=== PATIENT | female | born 1995 | race Caucasian/White ===

== ENCOUNTER 2021-11-11 20:55 | Emergency (ER) | payer OTHER, SELFPAY ==
[2021-11-11 20:57] VITALS: BP 153/110; PULSE 133; RESP 20; TEMP 36.2; O2SAT 99
--- NOTE | 2021-11-11 21:32 | ED.ALLEREA ---
HPI - Allergic Reaction General Chief complaint: Allergic Reaction Stated complaint: Alergic rxn Time Seen by Provider: 11/11/21 21:13 History of Present Illness HPI narrative: 26-year-old female with history of allergic reaction presents the emerge department after being exposed to a banana at the grocery store. Patient states ambulatory she thought she was having shortness of breath patient did use her EpiPen. Patient states after using the EpiPen she did have improvement of her symptoms for a few minutes. Patient states since then she feels that she does have tightening of her throat. Patient denies any difficulty breathing. Patient denies any difficulty swallowing. Patient also did take an unknown dose of Benadryl at the time of the incident. Related Data Allergies Allergy/AdvReac Type Severity Reaction Status Date / Time banana Allergy Difficulty Verified 11/11/21 22:00 Swallowing eucalyptus Allergy Hives Verified 11/11/21 22:00 sulfamethoxazole Allergy Hives Verified 11/11/21 22:00 [From Bactrim] trimethoprim [From Bactrim] Allergy Hives Verified 11/11/21 22:00 Review of Systems Review of Systems: CONSTITUTIONAL: Denies fever, chills, or sweats. EYES: Denies visual changes, redness, or discharge. ENT: Denies rhinorrhea, congestion, sore throat, or otalgia. CARDIOVASCULAR: Denies chest pain, palpitations, or edema. RESPIRATORY: Denies cough or dyspnea. Does report throat pressure GASTROINTESTINAL: Denies abdominal pain, nausea, vomiting, or diarrhea. GENITOURINARY: Denies dysuria or hematuria. SKIN: Denies rash or itching. MUSCULOSKELETAL: Denies back pain, joint pain, or myalgia. NEUROLOGIC: Denies headache, numbness, or weakness. PSYCHIATRIC: Denies anxiety or depression. Exam Narrative: APPEARANCE: Well appearing, no pain in distress, well-nourished. EYES: PERRLA/EOMI, conjunctivae very clear. NOSE: Normal no drainage THROAT: Pharynx clear, no exudate. NECK: Supple. No adenopathy, no masses. No stridor RESPIRATORY: Airway patent, respirations nonlabored. Clear to auscultation bilaterally, no rales, rhonchi, wheezing. CARDIOVASCULAR: Tachycardia and rhythm without murmurs rubs or gallops. ABDOMINAL: Soft, nontender, nondistended, no hepatosplenomegally MUSCULOSKELETAl: Moves all extremities. Strength/ROM intact, No edema, No calf tenderness. NEURO: Alert. Cranial nerves II through XII intact. Good gait. Good coordination SKIN: Warm, dry. Normal Color PSYCHIATRIC: Normal affect/mood, normal interaction with parents. Course Course Emergency Course: Patient was treated with 40 mg of p.o. prednisone, IV famotidine and IV Benadryl. Patient and family reviewed and the plan to treat with rest of medications and to observe. Reevaluation(s) Reevaluation #1: On first reevaluation patient states she feels significantly improved and is requesting discharge to home. Plan for additional 4 days of steroids was discussed with both patient and family. Patient's EpiPen will be refilled. All questions and concerns were addressed. Both patient and family were comfortable with the plan for discharge and close follow-up Time: 22:24 Vital Signs Vital signs: Vital Signs Temperature 97.2 F L 11/11/21 20:57 Pulse Rate 133 H 11/11/21 20:57 Respiratory Rate 20 11/11/21 20:57 Blood Pressure 153/110 H 11/11/21 20:57 Pulse Oximetry 99 11/11/21 20:57 Temperature 97.2 F L 11/11/21 20:57 Pulse Rate 105 H 11/11/21 22:05 Respiratory Rate 21 H 11/11/21 22:05 Blood Pressure 139/85 11/11/21 22:05 Pulse Oximetry 99 11/11/21 22:05 MDM - Allergic Reaction MDM Narrative Medical decision making narrative: Patient was treated with her home EpiPen prior to arrival. Upon arrival to the emerge department patient was mildly tachycardic and did receive IV fluids. Patient was also treated with prednisone, famotidine and Benadryl Discharge Plan Discharge Clinical Impression: Allergic reaction Qualifiers
[2021-11-11 21:51] VITALS: PULSE 107; RESP 23; O2SAT 99
[2021-11-11] MEDS: diphenhydrAMINE HCl INJ 50 MG/ML VIAL 25 MG IV PUSH (22:00)
[2021-11-11] MEDS: SODIUM CHLORIDE 0.9% IV 1,000 ML 999 ML IV CONT (22:01)
[2021-11-11] MEDS: FAMOTIDINE 20 MG/2 ML VIAL IV PUSH (22:01)
[2021-11-11 22:05] VITALS: BP 139/85; PULSE 105; RESP 21; O2SAT 99
[2021-11-11] MEDS: predniSONE 20 MG TABLET 40 MG PO (22:05)
[2021-11-11 22:54] VITALS: BP 129/74; PULSE 94; RESP 15; O2SAT 99
[2021-11-11 23:18] VITALS: BP 125/78; PULSE 102; RESP 25; O2SAT 100
== END 2021-11-11 23:21 | disposition home or self-care (01) ==
PROVIDERS: Emergency Provider Emergency Medicine
DX: T78.40XA Allergy, unspecified, initial encounter (principal); Z91.018 Allergy to other foods
CPT/HCPCS: 96361; 96374; 96375; 99284; J1200; J7030; J7512

== ENCOUNTER 2022-01-28 10:45 | Emergency (ER) | payer OTHER, SELFPAY ==
[2022-01-28 10:50] VITALS: BP 111/93; PULSE 121; RESP 18; TEMP 37; O2SAT 100
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
[2022-01-28] MEDS: FAMOTIDINE 20 MG/2 ML VIAL IV PUSH (11:13)
[2022-01-28] MEDS: diphenhydrAMINE HCl INJ 50 MG/ML VIAL IV PUSH (11:13)
[2022-01-28] MEDS: methylPREDNISolone SOD SUCC 125 MG VIAL IV PUSH (11:13)
[2022-01-28 12:02] VITALS: PULSE 105; RESP 18; O2SAT 100
[2022-01-28 13:39] VITALS: BP 173/83; PULSE 105; RESP 17; O2SAT 97
== END 2022-01-28 13:36 | disposition home or self-care (01) ==
PROVIDERS: Emergency Provider General Practice
DX: T78.40XA Allergy, unspecified, initial encounter (principal); Z91.018 Allergy to other foods
CPT/HCPCS: 96374; 96375; 99284; J1200; J2930

== ENCOUNTER 2022-03-05 08:09 | Emergency (ER) | payer OTHER, SELFPAY ==
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
[2022-03-05 08:15] VITALS: BP 133/73; PULSE 92; RESP 18; TEMP 36.9; O2SAT 98
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
[2022-03-05 09:13] LABS: Basophils Absolute Auto 0.1 K/mm3 (0.0-0.1); Basophils Percent Auto 1.2 % (0.2-1.2); Eosinophils Absolute Auto 0.3 K/mm3 (0-0.3); Eosinophils Percent Auto 3.5 % (0-4.4); Hematocrit 38.1 % (37.0-47.0); Hemoglobin 12.2 g/dL (12.0-15.0); Immature Granulocyte Absolute 0.02 K/mm3 (0.00-0.031); Immature Granulocyte Percent A 0.2 % (0-0.5); Lymphocytes Absolute Auto 2.18 K/mm3 (0.9-3.2); Lymphocytes Percent Auto 25.7 % (18.3-44.2); Mean Corpuscular Hemoglobin 25.6 pg (26-34); Mean Corpuscular Volume 79.9 fl (80-100); Mean Platelet Volume 10.5 fl (7.4-10.4); Monocytes Absolute Auto 0.3 K/mm3 (0.1-0.6); Monocytes Percent Auto 3.8 % (2.6-8.5); Neutrophils Absolute Auto 5.6 K/mm3 (1.3-6.7); Neutrophils Percent Auto 65.6 % (45.5-73.1); Platelet Count Result 220 k/mm3 (150-375); Red Blood Count 4.77 M/mm3 (4.2-5.4); Red Cell Distribution Width 17.1 % (11.5-14.5); White Blood Count 8.5 K/mm3 (4.5-10.0)
[2022-03-05 09:24] LABS: Alanine Aminotransferase 15 U/L (4-35); Albumin Level 3.8 g/dL (3.5-5.1); Alkaline Phosphatase 53 U/L (38-126); Anion Gap 6 mmol/L (8-16); Aspartate Amino Transferase 24 U/L (14-36); Bilirubin,Total 0.4 mg/dL (0.2-1.3); Blood Urea Nitrogen 11 mg/dL (7-17); Calcium 8.7 mg/dL (8.4-10.2); Carbon Dioxide 24 mmol/L (22-30); Chloride 107 mmol/L (98-107); Estimated CRCL calculation 135 ml/min; Estimated Glomerular Filt Rate > 60; Glucose 120 mg/dL (65-110); Potassium 3.8 mmol/L (3.4-5.0); Sodium 137 mmol/L (137-145)
[2022-03-05] MEDS: MORPHINE SULFATE (*CRX) 4 MG/ML INJ IV PUSH ×2 (09:24→11:02)
[2022-03-05] MEDS: TETRACAINE HCL 0.5% OPHTH SOLN 4 ML BTL 1 DROP (09:24)
[2022-03-05] MEDS: FLUORESCEIN SOD 1 MG/STRIP EACH EYE (09:24)
--- NOTE | 2022-03-05 10:01 | PC.NURSE ---
Pt refusing transfer by ambulance to [facility]. Verbalized understanding of risks of driving by private vehicle. Mom will be driving her over. Ambulance refusal paper signed.
[2022-03-05 11:10] VITALS: BP 162/100; PULSE 120; RESP 18; O2SAT 100
[2022-03-05] MEDS: ONDANSETRON INJ 4 MG/2 ML VIAL IV PUSH (11:12)
--- NOTE | 2022-03-05 11:22 | PC.NURSE ---
Pt initially refused ambulance transfer but after increasing headache decided to transfer by ambulance to [place]. Pt also vomited x1. Obtained orders for morphine and zofran and given. [facility] called and updated.
--- NOTE | 2022-03-05 11:27 | PC.NURSE ---
Pts mom called and updated on pts transfer
== END 2022-03-05 11:26 | disposition short-term general hospital (02) ==
PROVIDERS: Emergency Provider Emergency Medicine
DX: S05.11XA Contusion of eyeball and orbital tissues, right eye, initial encounter (principal); V48.5XXA Car driver injured in noncollision transport accident in traffic accident, initial encounter
CPT/HCPCS: 36415; 70450; 70486; 72125; 80053; 85025; 96374; 96375; 96376; 99285; J2270; J2405

== ENCOUNTER 2022-06-17 11:59 | Emergency (ER) | payer OTHER, SELFPAY ==
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
[2022-06-17 12:00] VITALS: BP 154/100; PULSE 90; RESP 16; TEMP 36.3; O2SAT 98
--- NOTE | 2022-06-17 12:06 | ECG_ITS ---
Measurements Intervals [place] Rate: 64 P: -4 OR: 150 QRS: 21 QRSD: 87 T: 6 QT: 365 QTc: 378 Interpretive Statements SINUS RHYTHM BORDERLINE ST-T WAVE ABNORMALITY- INFERIOR LEADS BORDERLINE ECG Electronically Signed On 06-17-2022 16:58:55 CDT by Raymond Cochran D.O.
[2022-06-17 12:32] LABS: Basophils Absolute Auto 0.1 K/mm3 (0.0-0.1); Basophils Percent Auto 0.9 % (0.2-1.2); Eosinophils Absolute Auto 0.3 K/mm3 (0-0.3); Eosinophils Percent Auto 3.3 % (0-4.4); Hematocrit 43.2 % (37.0-47.0); Hemoglobin 13.8 g/dL (12.0-15.0); Immature Granulocyte Absolute 0.02 K/mm3 (0.00-0.031); Immature Granulocyte Percent A 0.2 % (0-0.5); Lymphocytes Absolute Auto 2.54 K/mm3 (0.9-3.2); Lymphocytes Percent Auto 27.3 % (18.3-44.2); Mean Corpuscular HGB Conc 31.9 g/dl (32-36); Mean Corpuscular Hemoglobin 26.4 pg (26-34); Mean Corpuscular Volume 82.8 fl (80-100); Mean Platelet Volume 9.9 fl (7.4-10.4); Monocytes Absolute Auto 0.4 K/mm3 (0.1-0.6); Monocytes Percent Auto 4.7 % (2.6-8.5); Neutrophils Absolute Auto 5.9 K/mm3 (1.3-6.7); Neutrophils Percent Auto 63.6 % (45.5-73.1); Platelet Count Result 265 k/mm3 (150-375); Red Blood Count 5.22 M/mm3 (4.2-5.4); Red Cell Distribution Width 14.6 % (11.5-14.5); White Blood Count 9.3 K/mm3 (4.5-10.0)
[2022-06-17 12:35] VITALS: BP 134/90; PULSE 81
[2022-06-17 12:36] VITALS: BP 148/106; BP 154/100; PULSE 79; PULSE 98
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
[2022-06-17 13:06] LABS: Alanine Aminotransferase 17 U/L (6-35); Albumin Level 4.4 g/dL (3.5-5.1); Alkaline Phosphatase 63 U/L (38-126); Anion Gap 9 mmol/L (8-16); Aspartate Amino Transferase 27 U/L (14-36); Bilirubin,Total 0.4 mg/dL (0.2-1.3); Blood Urea Nitrogen 8 mg/dL (7-17); Calcium 10.3 mg/dL (8.4-10.2); Carbon Dioxide 23 mmol/L (22-30); Chloride 107 mmol/L (98-107); Estimated CRCL calculation 121 ml/min; Estimated Glomerular Filt Rate > 60; Glucose 99 mg/dL (65-110); Potassium 4.2 mmol/L (3.4-5.0); Sodium 139 mmol/L (137-145)
[2022-06-17 13:38] LABS: Lactic Acid Reflex 0.9 mmol/L (0.7-2.0)
[2022-06-17 14:23] VITALS: BP 143/97; PULSE 84; RESP 17; O2SAT 100
== END 2022-06-17 14:24 | disposition home or self-care (01) ==
PROVIDERS: Physician Assistant; Emergency Provider Emergency Medicine
DX: R55 Syncope and collapse (principal); R94.31 Abnormal electrocardiogram [ECG] [EKG]
CPT/HCPCS: 36415; 70450; 80053; 81025; 83605; 85025; 93005; 99284

== ENCOUNTER 2024-02-24 19:10 | Emergency (ER) | payer BC, SELFPAY ==
--- NOTE | ~2024-02-24 | XR_ITS ---
EXAMINATION: XR chest 1V portable DATE: 02/24/2024 21:09 INDICATION: Low blood sugar. TECHNIQUE: A single frontal view of the chest was obtained. COMPARISON: None. FINDINGS: There is no pneumonia, pleural effusion, or pneumothorax. The heart size is normal. IMPRESSION: 1. No acute cardiopulmonary disease. Reviewed, dictated and finalized at location E.
[2024-02-24 19:39] VITALS: BP 164/86; PULSE 85; RESP 18; TEMP 36.4; O2SAT 97
[2024-02-24 19:50] LABS: Glucose Point of Care 91 mg/dl (65-105)
[2024-02-24 20:49] LABS: Glucose Point of Care 85 mg/dl (65-105)
--- NOTE | 2024-02-24 20:53 | ECG_ITS ---
Measurements Intervals [place] Rate: 61 P: 6 [place]: 159 QRS: 21 QRSD: 96 T: 19 QT: 382 QTc: 386 Interpretive Statements SINUS RHYTHM LOW QRS VOLTAGE IN PRECORDIAL LEADS CANNOT RULE OUT SEPTAL INFARCT, AGE INDETERMINATE BORDERLINE T WAVE ABNORMALITY- ANTERIOR LEADS ABNORMAL ECG COMPARED TO ECG 06/17/2022 12:16:16 NO SIGNIFICANT CHANGES Electronically Signed On 02-24-2024 21:22:36 CDT by Raymond Cochran D.O.
--- NOTE | 2024-02-24 21:09 | ED.GENADULT ---
HPI - General Adult General Chief complaint: Recheck/Abnormal Lab/Rx Stated complaint: low blood sugar Time Seen by Provider: 02/24/24 20:42 Source: patient Mode of arrival: ambulatory Limitations: no limitations History of Present Illness HPI narrative: This is a 29-year-old female with PMH of POTS who presents to the ED with chief complaint of low blood sugars ongoing for the last several weeks. Patient reports that she has been set up with a freestyle Quentin monitor to measure blood glucose by her PCP. She reports that she was having episodes of lightheadedness at school and a nurse thought that her blood sugar was a little low. She reports that on the monitor today she has had consistently low blood sugars and 50s and 60s despite eating sugary snacks. Denies LOC, chest pain, shortness of breath, abdominal pain, urinary symptoms, cough, fevers, chills. Related Data Home Medications Medication Instructions Recorded Confirmed buspirone 30 mg tablet mg 02/24/24 fluoxetine 40 mg capsule mg 02/24/24 gabapentin 800 mg tablet mg 02/24/24 hydroxyzine HCl 50 mg tablet mg 02/24/24 lisdexamfetamine 50 mg capsule mg 02/24/24 (Vyvanse) trazodone 50 mg tablet mg 02/24/24 Allergies Allergy/AdvReac Type Severity Reaction Status Date / Time banana Allergy Severe Difficulty Verified 02/24/24 19:44 Swallowing bupropion [From Wellbutrin] Allergy Mild Other Verified 02/24/24 19:44 eucalyptus Allergy Hives Verified 02/24/24 19:44 sulfamethoxazole Allergy Hives Verified 02/24/24 19:44 [From Bactrim] trimethoprim [From Bactrim] Allergy Hives Verified 02/24/24 19:44 Review of Systems Review of Systems: All systems as dictated in HPI [facility] Past Medical History Medical History Anaphylactic reaction Surgical History Surgical History No pertinent past surgical history Social History Social History Smoking status: Never smoker Exam Narrative: GENERAL: Well-appearing, well-nourished, and in no acute distress. HEAD: Normocephalic, atraumatic. EYES: PERRLA and EOMI. ENT: Nares clear, no rhinorrhea or epistaxis. Mucous membranes moist. Oropharynx without tonsillar hypertrophy exudate or other lesions. NECK: Supple. No adenopathy or masses. CHEST: No respiratory distress. Clear to auscultation. No wheezes rales or rhonchi HEART: Regular rate and rhythm. No murmur heard. Normal peripheral pulses. ABDOMEN: Soft, nontender, nondistended, normal active bowel sounds. MSK: Normal range of motion. No edema. SKIN: Warm, dry, no rash. NEURO: Alert and oriented x3. No focal deficits. PSYCH: Normal mood and affect. Course Vital Signs Vital signs: Vital Signs Temperature 97.6 F 02/24/24 19:39 Pulse Rate 85 02/24/24 19:39 Respiratory Rate 18 02/24/24 19:39 Blood Pressure 164/86 H 02/24/24 19:39 Pulse Oximetry 97 02/24/24 19:39 Oxygen Delivery Room Air 02/24/24 19:39 Temperature 98.1 F 02/24/24 23:12 Pulse Rate 67 02/24/24 23:12 Respiratory Rate 15 02/24/24 23:12 Blood Pressure 147/82 H 02/24/24 23:12 Pulse Oximetry 99 02/24/24 23:12 Oxygen Delivery Room Air 02/24/24 19:39 Medical Decision Making MDM Narrative Medical decision making narrative: This is a 29-year-old female who presents to the ED for chief complaint of hypoglycemia. Vitals are normal. Exam is benign. Point care glucose is normal in the mid 80s here. EKG shows normal sinus rhythm. CBC is unremarkable. CMP unremarkable as well. Repeat bedside glucose 1 hour later is in the 90s. Glucose on blood draw continues to be in the upper 80s to 90s. No evidence of any hypoglycemic here in the department. She is currently being monitored for possible hypoglycemia by her PCP and has been wearing a freestyle Quentin mo
[2024-02-24 21:33] LABS: Basophils Absolute Auto 0.1 K/mm3 (0.0-0.1); Basophils Percent Auto 0.8 % (0.2-1.2); Eosinophils Absolute Auto 0.2 K/mm3 (0-0.3); Eosinophils Percent Auto 2.3 % (0-4.4); Immature Granulocyte Absolute 0.02 K/mm3 (0.00-0.031); Immature Granulocyte Percent A 0.2 % (0-0.5); Lymphocytes Absolute Auto 2.68 K/mm3 (0.9-3.2); Mean Corpuscular HGB Conc 31.7 g/dl (32-36); Mean Corpuscular Hemoglobin 27.7 pg (26-34); Mean Corpuscular Volume 87.2 fl (80-100); Mean Platelet Volume 10.4 fl (7.4-10.4); Monocytes Absolute Auto 0.5 K/mm3 (0.1-0.6); Monocytes Percent Auto 5.8 % (2.6-8.5); Neutrophils Absolute Auto 5.2 K/mm3 (1.3-6.7); Neutrophils Percent Auto 59.9 % (45.5-73.1); Platelet Count Result 232 k/mm3 (150-375); Red Cell Distribution Width 15.6 % (11.5-14.5); White Blood Count 8.7 K/mm3 (4.5-10.0)
[2024-02-24 21:54] LABS: Alanine Aminotransferase 15 U/L (6-35); Alkaline Phosphatase 68 U/L (38-126); Anion Gap 4 mmol/L (4-12); Aspartate Amino Transferase 28 U/L (14-36); Bilirubin,Total 0.3 mg/dL (0.2-1.3); Blood Urea Nitrogen 9 mg/dL (7-17); Calcium 9.3 mg/dL (8.4-10.2); Carbon Dioxide 28 mmol/L (22-30); Chloride 106 mmol/L (98-107); Estimated CRCL calculation 130 ml/min; Estimated Glomerular Filt Rate > 60; Glucose 88 mg/dL (65-110); Potassium 3.6 mmol/L (3.4-5.0); Sodium 138 mmol/L (137-145)
[2024-02-24 21:56] LABS: Appearance Urine Cloudy (Clear); Bacteria Urine 2+ /hpf; Bilirubin Urine Negative (Negative); Blood Urine 3+ (Negative); Calcium Oxalate Crystals Urine Present /hpf; Color Urine Yellow (Yellow); Glucose Urine UA Negative (Negative); Ketones Urine Trace mg/dL (Negative); Leukocyte Esterase Ur Trace LEU/UL (Negative); Nitrate Urine Negative (Negative); Non Pathogenic Casts 0-2; Protein Urine Trace mg/dL (Negative); RBC Urine >100 /hpf (0-2); Squamous Epithelial Cell Urine Few /hpf (Few); pH Urine 5.5 (5.0-9.0)
[2024-02-24 21:57] LABS: Add Urine Microscopic? YES; Specific Grav Ur 1.032 (1.001-1.035)
--- NOTE | 2024-02-24 22:11 | ECG_ITS ---
Measurements Intervals [place] Rate: 60 P: 7 [place]: 160 QRS: 29 QRSD: 94 T: 29 QT: 402 QTc: 403 Interpretive Statements SINUS RHYTHM WITHIN NORMAL LIMITS COMPARED TO ECG 02/24/2024 21:02:05 NO SIGNIFICANT CHANGES Electronically Signed On 02-25-2024 12:55:43 CDT by Dennis Ross M.D.
[2024-02-24 22:24] LABS: Thyroid Stimulating Hormone 0.814 uIU/mL (0.465-4.680)
[2024-02-24 22:42] LABS: Glucose Point of Care 95 mg/dl (65-105)
[2024-02-24 23:12] VITALS: BP 147/82; PULSE 67; RESP 15; TEMP 36.7; O2SAT 99
== END 2024-02-24 23:13 | disposition home or self-care (01) ==
PROVIDERS: Emergency Provider Physician Assistant
DX: E16.2 Hypoglycemia, unspecified (principal)
CPT/HCPCS: 36415; 71045; 80053; 81001; 82948; 84443; 85025; 87086; 93005; 99283

== ENCOUNTER 2024-08-08 11:16 | Emergency (ER) | payer OTHER, SELFPAY ==
[2024-08-08] MEDS: diphenhydrAMINE HCl INJ 50 MG/ML VIAL 25 MG IV PUSH (11:29)
[2024-08-08] MEDS: methylPREDNISolone SOD SUCC 125 MG VIAL IV PUSH (11:31)
[2024-08-08] MEDS: FAMOTIDINE 20 MG/2 ML VIAL IV PUSH (11:34)
[2024-08-08 11:36] VITALS: BP 135/66; PULSE 94; RESP 22; TEMP 37; O2SAT 100
[2024-08-08 12:36] VITALS: BP 130/61; PULSE 91; RESP 21; O2SAT 100; O2SAT 99
[2024-08-08] MEDS: LORazepam INJ (*CRX) 2 MG/ML VIAL 1 MG IV PUSH (12:43)
[2024-08-08 13:01] LABS: Basophils Absolute Auto 0.1 K/mm3 (0.0-0.1); Basophils Percent Auto 0.8 % (0.2-1.2); Eosinophils Absolute Auto 0.4 K/mm3 (0-0.3); Eosinophils Percent Auto 2.3 % (0-4.4); Immature Granulocyte Absolute 0.05 K/mm3 (0.00-0.031); Immature Granulocyte Percent A 0.3 % (0-0.5); Lymphocytes Absolute Auto 6.23 K/mm3 (0.9-3.2); Lymphocytes Percent Auto 40.2 % (18.3-44.2); Mean Corpuscular HGB Conc 31.8 g/dl (32-36); Mean Corpuscular Hemoglobin 28.1 pg (26-34); Mean Corpuscular Volume 88.2 fl (80-100); Mean Platelet Volume 10.8 fl (7.4-10.4); Monocytes Absolute Auto 0.7 K/mm3 (0.1-0.6); Monocytes Percent Auto 4.4 % (2.6-8.5); Neutrophils Absolute Auto 8.1 K/mm3 (1.3-6.7); Platelet Count Result 339 k/mm3 (150-375); Red Blood Count 4.99 M/mm3 (4.2-5.4); Red Cell Distribution Width 14.1 % (11.5-14.5); White Blood Count 15.5 K/mm3 (4.5-10.0)
[2024-08-08 13:08] LABS: Add Urine Microscopic? YES; Appearance Urine Clear (Clear); Bacteria Urine None Seen /hpf; Bilirubin Urine Negative (Negative); Blood Urine Negative (Negative); Color Urine Yellow (Yellow); Glucose Urine UA Negative (Negative); Ketones Urine Negative (Negative); Leukocyte Esterase Ur Trace LEU/UL (Negative); Nitrate Urine Negative (Negative); Non Pathogenic Casts 0-2; Protein Urine Negative (Negative); RBC Urine 0-2 /hpf (0-2); Specific Grav Ur 1.014 (1.001-1.035); Squamous Epithelial Cell Urine None Seen /hpf (Few); Urobilinogen Urine 0.2 mg/dL (<2.0); WBC Urine 0-5 /hpf (0-3); pH Urine 6.5 (5.0-9.0)
[2024-08-08 13:16] LABS: Alanine Aminotransferase 18 U/L (6-35); Albumin Level 4.6 g/dL (3.5-5.1); Alkaline Phosphatase 90 U/L (38-126); Anion Gap 17 mmol/L (4-12); Aspartate Amino Transferase 30 U/L (14-36); Bilirubin,Total 0.4 mg/dL (0.2-1.3); Blood Urea Nitrogen 15 mg/dL (7-17); Calcium 9.6 mg/dL (8.4-10.2); Carbon Dioxide 23 mmol/L (22-30); Chloride 98 mmol/L (98-107); Estimated CRCL calculation 113 ml/min; Estimated Glomerular Filt Rate > 60; Glucose 124 mg/dL (65-110); Potassium 2.8 mmol/L (3.4-5.0); Sodium 138 mmol/L (137-145)
[2024-08-08] MEDS: ONDANSETRON INJ 4 MG/2 ML VIAL IV PUSH (13:54)
[2024-08-08 13:56] VITALS: BP 122/78; PULSE 90; RESP 21; O2SAT 99
[2024-08-08] MEDS: POTASSIUM CHLORIDE 20 MEQ ER TABLET 40 MEQ PO (13:57)
[2024-08-08 15:05] VITALS: BP 135/80; PULSE 84; RESP 19; O2SAT 97
[2024-08-08 15:05] LABS: BEDSIDEPREGUCG Negative (Negative)
[2024-08-08] MEDS: LIDOCAINE HCL 2% VISC SOLN 15 ML UDC PO (15:14)
--- NOTE | 2024-08-08 15:43 | ED.GENADULT ---
HPI - General Adult General Chief complaint: Allergic Reaction Stated complaint: allergic reaction Time Seen by Provider: 08/08/24 11:26 History of Present Illness HPI narrative: Patient is a 29-year-old female who presents ER with concern for allergic reaction. 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 Her throat then felt scratching like she is being choked. No lip swelling. She then felt like her neck was itching. She has been scratching her neck on the way here. She gave herself 2 epinephrine injections prior to arrival. Related Data Home Medications Medication Instructions Recorded Confirmed buspirone 30 mg tablet mg 02/24/24 fluoxetine 40 mg capsule mg 02/24/24 gabapentin 800 mg tablet mg 02/24/24 hydroxyzine HCl 50 mg tablet mg 02/24/24 lisdexamfetamine 50 mg capsule mg 02/24/24 (Vyvanse) trazodone 50 mg tablet mg 02/24/24 Allergies Allergy/AdvReac Type Severity Reaction Status Date / Time banana Allergy Severe Difficulty Verified 08/08/24 11:16 Swallowing bupropion [From Wellbutrin] Allergy Mild Other Verified 08/08/24 11:16 eucalyptus Allergy Hives Verified 08/08/24 11:16 sulfamethoxazole Allergy Hives Verified 08/08/24 11:16 [From Bactrim] trimethoprim [From Bactrim] Allergy Hives Verified 08/08/24 11:16 Review of Systems Review of Systems: All systems reviewed & are unremarkable except as noted in HPI and below Constitutional: Constitutional: Reports no additional constitutional complaints ENT: Reports system reviewed and no additional complaints, except as documented Cardiovascular: Cardiovascular: Reports no additional cardiovascular complaints Respiratory: Respiratory: Reports no additional respiratory complaints Integumentary/Breasts: Skin/Breast: Reports pruritus, Denies erythema and Denies rash PMFSH Past Medical History Medical History Anaphylactic reaction Surgical History Surgical History No pertinent past surgical history Social History Social History Smoking status: Never smoker Exam Narrative: GENERAL: Anxious-appearing, well-nourished, and in no acute distress. HEAD: Normocephalic, atraumatic. ENT: Mucous membranes moist. NECK: Supple. CHEST: Clear to auscultation. No respiratory distress. HEART: Regular rate and rhythm. Normal peripheral pulses. ABDOMEN: Soft, nontender, nondistended. EXTREMITIES: Normal range of motion. No edema. SKIN: Warm, dry, no rash. Excoriations the neck and left congregational. No urticaria. NEURO: Alert and oriented x3. PSYCH: Normal mood and affect. 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 She is given oral potassium to correct her hypokalemia. There is no evidence of UE edema in the mouth. There is no wheezing. Will send home with some prednisone, potassium, hydroxyzine, and refill for the EpiPen. She can also take famotidine. Suspect more anxiety as opposed to allergic reaction but happy to treat given her known allergy. Patient also received viscous lidocaine that helped number throat. Vital Signs Vital signs: Vital Signs Temperature 98.6 F 08/08/24 11:36 Pulse Rate 94 08/08/24 11:36 Respiratory Rate 22 H 08/08/24 11:36 Blood Pressure 135/66 08/08/24 11:36 Pulse Oximetry 100 08/08/24 11:36 Oxygen Delivery Room Air 08/08/24 11:36 Temperature 98 F 08/08/24 16:07 Pulse Rate 81 08/08/24 16:07 Respiratory Rate 21 H 08/08/24 16:07 Blood Pressure 118/67 08/08/24 16:07 Pulse Oximetry 100 08/08/24 16:07 Oxygen Delivery Room Air 08/08/24 12:36 Medical Decision Making Vital Signs Vital Signs: Vital Signs Temperature 98.6 F 08/08/24 11:36 Pulse Rate 94 08/08/24 11:36 Respiratory Rate 22 H 08/08/24 11:36
[2024-08-08 16:07] VITALS: BP 118/67; PULSE 81; RESP 21; TEMP 36.6; O2SAT 100
== END 2024-08-08 16:08 | disposition home or self-care (01) ==
PROVIDERS: Emergency Provider Emergency Medicine
DX: F41.0 Panic disorder [episodic paroxysmal anxiety] (principal); L29.9 Pruritus, unspecified; T78.1XXA Other adverse food reactions, not elsewhere classified, initial encounter; E87.6 Hypokalemia; Z91.018 Allergy to other foods
CPT/HCPCS: 36415; 80053; 81001; 81025; 85025; 96374; 96375; 99284; A9270; J1200; J2060; J2405; J2919

== ENCOUNTER 2025-08-26 12:32 | Emergency (ER) | payer OTHER, SELFPAY ==
--- OUTSIDE RECORDS SUMMARY | 2024-09-19 09:15 | XMS_ITS | Continuity of Care Document ---
Author Organization [employer] Address [address] [place] [address] Phone Care Team Providers Care Sack Maker Name Role Phone Enrico Cardona MD Unavailable Unavailable Allergies, Adverse Reactions, Alerts Substance Reaction Status Criticality BUPROPION HCL Active No Information trimethoprim Active No Information sulfamethoxazole Active No Informat ion Medications Medication Instructions Dosage Effective Dates (start - stop) Status Comments epinephrine 0.3 mg/0.3 mL injection, auto-injector inject 0.3 milliliter by intramuscular route once as needed for anaphylaxis as needed 0.3 MG - Active Benadryl 25 mg capsule take 1 capsule by oral route every 4 - 6 hours as needed as needed 25 MG - Active Claritin 10 mg tablet take 1 tablet by oral route every day 10 MG - Active LITHIUM CARBONATE (unknown strength) Not Available - Active CLONAZEPAM (unknown strength) Not Available - Active TRAZODONE HCL (unknown strength) Not Available - Active Procedures Procedure Date US Breast, Unilateral, Limited DIAGNOSTIC MAMMOGRAM (CAD) ONE BREAST Oc Diagnostic Digital Breast Tomosynthesis, Unilateral Or Bilateral ALLERGY SKIN TESTS OFFICE [id number] Advance Directives Directive Yes / No Effective Date File Name No Information Encounters Encounter Description Practice Location Reason(s) For Visit Diagnoses Date Provider Providers Copied on Encounter [employer], [address], [place], [place], [id number], [place] tel:[phone] [facility] No Information Brendan Weston. [address], [place], [place], [address] , [place]. tel:[phone] Referring Provider: Laurent Quan, [address], [place], [address]. tel:[phone] OFFICE [id number] P-MED [facility], [address], [place], [place], [id number], [place] tel:[phone] [facility] Asthma Allergy [place] allergy symptoms (chief complaint) Seasonal allergic rhinitis due to pollenAnaphylaxis due to food 2 Jay Culver. [address] [facility] , [address], [place], [place], [id number] , [place]. tel:[phone] Referring Provider: Palomo Thompson, [address], [place], [address] . tel:[phone] Family History Family Member Type Diagnosis Age At Onset Mother Problem Lupus erythematosus Father Problem Lupus erythematosus Payers Payer name Insurance type Covered democrat ID Authoriza tipankaj(s) [facility] [id number] Social History Type Description Quantity Date Captured Comments Sex Female Smoking Status No Information Chief Complaint And Reason For Visit No Information Reason For Referral Reason For Referral No Information History Of Present Illness Encounter Date Complaint History Of Prese nt Illness Comments: Food i nvolved was banana. The reaction onset was immediately Symptoms included throat tightness/itchy, diffuse itching. Reaction was treated with liquid benadryl if she catches it early, otherwise has used EPI pen on occasion. The symptoms lasted an hour if she uses benadryl, within 10 minutes if using EPI.. This reaction occurred as infant initially ago, and reports episode as recently as 2 weeks ago after possible airborne exposure. The patient has not been re-exposed without symptoms. The patient has required ED medical attention.Tolerates avocado, and denies issues with latex. Doesn't eat kiwi or chestnut. allergy symptoms The patient pre sents with itchy throat, post nasal drainage, sneezing, runny nose and body itching that began gradually and have lasted 5 Years. Symptoms are constant, moderate and unchanged. The symptoms are felt to be related to spring season and summer season. There is no history of asthma. The allergic symptoms are worsened by food, season change, weather and pollen. The patient denies reflux and sinus infections. Functional Status Date Functional Assessmen t No Information Instructions Date Instruction Additional Infor mation Skin testing to bana na was negative; no objective evidence of allergy identified. Will check through blood as well to further clarify and rule out underlying mast cell disorder. Continue strict avoidance of ingestion and skin contact until lab comes back. Reviewed that it is atypical to have a reaction from ambient air exposure to banana, as allergen is not typically airborne.Keep Epi Pen accessible just in case. 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 Environmental control measures were discussed and handouts were provided. A copy of the skin testing results was provided as well.Can resume claritin 10mg daily.Follow-up pending lab results. Related to Seasonal allergic rhinitis due to pollen Assessments Type Assessment Date No Information Patient Care Teams Name Effective Dates (start - stop) Status Members No Information
--- OUTSIDE RECORDS SUMMARY | 2025-08-26 12:34 | XMS_ITS | Clinical Summary ---
Author Organization [facility] Address [address] [place] [address] Care Team Providers Care Counter Clerk [employer] Name Role Phone Nga Rashid MD Primary Care Provider [phone] Source Comments [facility],non-owned Affiliates and Associated Physician Practices is amultiple site organization consisting of ambulatory clinics and hospital sitesin [place], [place], [place] and [place]. This disclosure is being madepursuant to the Care Everywhere program and may not contain all information available regarding this patient. Last updated 18.[facility] Allergies Active Allergy Reactions Criticality Noted Date Comments Banana Anaphylaxis High 02/07/2017 NOT ALLERGIC TO LATEX Carries epi pen NOT ALLERGIC TO LATEX NOT ALLERGIC TO LATEX Banana (Diagnostic) Anaphylaxis High 02/13/2022 Banana Extract Allergy Skin Test Unknown 11/22/2023 Bee Venom Unknown 02/07/2017 Bupropion Other Low 03/05/2022 brain shocks brain shocks Eucalyptus Oil Rash Medium 10/15/2018 Pumpkin Flavor Other 02/07/2017 Sulfamethoxazole Other 03/27/2022 Sulfamethoxazole W-Trimethoprim Rash Medium 11/29/2020 Trimethoprim Other 03/27/2022 Medications * Be aware that medications may not be up to date on this document. Alwaysverify current medications with the patient. diphenhydrAMINE (Benadryl) 25 MG capsule Take 1 (one) capsule by mouth every 4 hours as needed for Itching 12 capsule 3 Active EPINEPHrine (Epipen) 0.3 MG/0.3ML auto-injector pen Inject 0.3 mL into muscle once as needed for Anaphylaxis 0.6 mL 3 Active famotidine (Pepcid) 20 MG tablet Take 1 (one) tablet by mouth once daily for 4 days 4 tablet 3 Active Active Problems Problem Noted Date Diagnosed Date Thyroid nodule 09/28/2011 Social History Tobacco Use Types Packs/Day Years Used Date Smoking Tobacco: Never Assessed AUDIT-C Answer Date Recorded Q1: How often do you have a drink containing alcohol? Never 11/22/2023 Q2: How many drinks containi ng alcohol do you have on a typical day when you are drinking? Patient does not drink Q3: How often do you have si x or more drinks on one occasion? Never 11/22/2023 Comments Unknown Sex and Gender Information Value Date Recorded Sex Assigned at Not on file Legal Sex Female 5:43 AM CALL CENTER RN Gender Identity Not on file Sexual Orientation Not on file Last Filed Vital Signs Vital Sign Reading Time Taken Comments Blood Pressure 139/84 12/24/2024 4:00 PM CALL CENTER RN Pulse 74 12/24/2024 4:00 PM CALL CENTER RN Temperature 36.7 C (98 F) 12/24/2024 12:30 PM CALL CENTER RN Respiratory Rate 18 12/24/2024 4:00 PM CALL CENTER RN Oxygen Saturation 100% 12/24/2024 4:00 PM CALL CENTER RN Inhaled Oxygen Concentration - - Weight 108.9 kg (240 lb) 12/24/2024 12:30 PM CALL CENTER RN Height 165.1 cm (5' 5) 12/24/2024 12:30 PM CALL CENTER RN Body Mass Index 39.94 12/24/2024 12:30 PM CALL CENTER RN Plan of Treatment Health Maintenance Due Date Last Done Comments HIV SCREENING 2012 HEPATITIS C SCREENING 01/11/2015 DTAP/TDAP/TD VACCINES (1 - Tdap) 2016 HEPATITIS B VACCINE (1 of 3 - 19+ 3-dose series) 2016 PAP SMEAR 2018 HPV VACCINE (1 - 3-dose SCDM series) 2024 DEPRESSION SCREENING 11/26/2024 COVID-19 VACCINE ( season) 2025 10/14/2022, 09/25/2021, 01/26/2021, Additional history exists INFLUENZA VACCINE (#1) 2025 2, 09/13/2021, 08/07/2019, Additional history exists ZOSTER VACCINE (1 of 2) 2047 HIB VACCINE Aged Out No longer eligi ble based on patient's age to complete this topic MENINGOCOCCAL (Group B) VACCINE SHARED DECISION-MAKING Aged Out No longer eligible based on patient's age to complete this topic MENINGOCOCCAL GROUPS A/C/Y/W VACCINE Aged Out No longer eligible based on patient's age to complete this topic PNEUMOCOCCAL VACCINE Aged Out No long er eligible based on patient's age to complete this topic Insurance [id number] [address] [facility] Care Teams Counter Clerk [employer] Relationship Specialty Start Date End Date Nga Rashid MD [address] [place] [address] PCP - General 09/28/11
--- OUTSIDE RECORDS SUMMARY | 2025-08-26 12:34 | XMS_ITS | Clinical Summary ---
Author Organization [facility] Address [address] [place] [address] Care Team Providers Care Steel Estimator Name Role Phone Unknown, Notinfile Primary Care Provider Unavail able Allergies Active Allergy Reactions Criticality Noted Date Comments Sulfamethoxazole-Trimeth oprim Rash Medium 09/11/2021 Banana Anaphylaxis High 09/11/2021 Bupropion Other (See comments) Low 03/05/2022 brain shocks Medications drospirenone-ethin yl estradioL (MARY BETH,GIANVI) 3-0.02 mg per tabletIndications: Contraception Take 1 tablet by mouth daily Active hydrOXYzine (ATARAX) 10 mg tabletIndications: anxiety Take 1 tablet (10 mg total) by mouth every 4 (four) hours as needed for anxiety 30 tablet 2 1 Active clonazePAM (KlonoPIN) 1 mg tablet TAKE 1 TABLET BY MOUTH TWICE A DAY NEEDED FOR SEVERE ANXIETY 2 Active lithium 300 mg capsule TAKE 1 CAPSULE BY MOUTH TWICE A DAY FOR MOOD 2 Active traZODone (DESYREL) 50 mg tablet TAKE 0.5 TABLET BY MOUTH ONCE A DAY AT BEDTIME ALONG WITH 100 MG TO EQUAL 125 MG 2 Active SUMAtriptan (IMITREX) 50 mg tabletIndications: Migraine Take 1 tablet (50 mg total) by mouth once as needed for migraine May repeat dose once in 2 hours if no relief. Do not exceed 2 doses in 24 hours. 9 tablet 5 03/05/20 26 Active Active Problems Problem Noted Date Diagnosed Date Migraine 03/05/2025 Right eye trauma 03/06/2022 Assessment & Plan (05/05/2022 3:10 PM CDT): Last seen 03/06/22 for decreased vision following right eye trauma. Previously felt to be functional, with bare LP vision, no APD on MD pupil check. On stereo testing previously able to pick out fly, 3/3 animals and 3/9 circles which suggest at least 20/100 level of vision. RNFL OCT was full and GCC normal as well. Normal dilated exam. No organic cause for vision loss- discussed good prognosis for visual recovery Today 05/05/22 VA OD 20/30 and OS 20/30 IOP OD 15 / IOP OS 15 Feels vision is completely back to normal! Reassuring slit lamp exam and dilated eye exam OK to follow up with local eye doctor for annual exams, here PRN Assessment & Plan (03/06/2022 5:44 PM CDT): 3 days s/p blunt right eye trauma with decreased vision. Head CT and MRI brain/orbits wnl. Radiology read of possible ruptured posterior capsule; however, on my review of images, I do not see the images or any indication of ruptures posterior capsule. Unlikely that MRI would have the level of resolution to detect capsular defects. Today with bare LP vision. No APD on pupil check by MD. But on stereo testing, patient able to accurately pick out fly, and 3/3 animals and 3/9 circles, which suggest at least 20/100 level of vision. RNFL OCT was full OU, and GCC analysis is normal as well. Normal dilated exam. No organic cause for patient's vision loss. Given normal anatomical structures and healthy optic nerve imaging, discussed that this is encouraging for recovery of vision with time. Recommend repeat exam in 1-2 months. Pt to call sooner if worsening vision, changes in left eye, eye pain or abnormalities in eye movement. PTSD (post-traumatic stress disorder) 09/13/2021 Unspecified mood (affective) disorder 09/13/2021 Psychogenic nonepileptic seizure 09/13/2021 Knee pain 12/03/2015 Disorder of breast 02/05/2015 Immunizations Immunization Administration Dates Next Due Influenza, Quadrivalent, Spl it, Preservative Free, Intramuscular 09/13/2021 Medical History Medical History Date Comments Seizure (HCC) Family History Medical History Relation Name Comments Hypertension Father Family history of hypertension - (Added by TW Conv) Stroke Father Family history of cerebrovascular accident (CVA) - (Added by TW Conv) Cancer Mother Family history of malignant neoplasm - (Added by TW Conv) Diabetes Mother Family history of diabetes mellitus - (Added by TW Conv) Seizures Mother Seizure - (Adde d by TW Conv) Relation Name Status Comments Father Mother Social History Tobacco Use Types Packs/Day Years Used Date Smoking Tobacco: Never Social Connection and Isolation Panel Answer Date Recorded In a typical week, how many times do you talk on the phone with family, friends, or neighbors? Three times a week 09/13/2021 How often do you get togethe r with friends or relatives? Three times a week 09/13/2021 How often do you attend chur ch or judaism services? Never 09/13/2021 Do you belong to any clubs o r organizations such as latter day groups, unions, fraternal or athletic groups, or school groups? No 09/13/2021 How often do you attend meet ings of the clubs or organizations you belong to? Never 09/13/2021 Are you , , di vorced, , never , or living with a partner? Never 09/13/2021 Exercise Vital Sign Answer Date Recorde d On average, how many days pe r week do you engage in moderate to strenuous exercise (like a brisk walk)? 0 days 09/13/2021 On average, how many minutes do you engage in exercise at this level? 0 min 09/13/2021 PRAPARE - Transportation Answer Date Re corded In the past 12 months, has l ack of transportation kept you from medical appointments or from getting medications? No 08/26 In the past 12 months, has l ack of transportation kept you from meetings, work, or from getting things needed for daily living? No 09/13/2021 Housing Stability Vital Sign Answer Jeremy e Recorded In the last 12 months, was t here a time when you were not able to pay the mortgage or rent on time? No 09/13/2021 Number of Places Lived in the Last Year Not on f ile 09/13/2021 In the last 12 months, was t here a time when you did not have a steady place to sleep or slept in a half-way (including now)? No 09/13/2021 Personal Safety Answer Date Recorded Have you ever been in or are you currently in a harmful physical or emotional relationship or is someone making you feel afraid or unsafe? 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 Gender Identity Not on file Sexual Orientation Not on file Obstetrics History Last Filed Vital Signs Vital Sign Reading Time Taken Comments Blood Pressure 179/76 03/05/2025 7:30 PM CDT Pulse 80 03/05/2025 7:30 PM CDT Temperature 36.7 C (98 F) 03/05/2025 11:39 AM CDT Respiratory Rate 21 03/05/2025 7:30 PM CDT Oxygen Saturation 98% 03/05/2025 7:30 PM CDT Inhaled Oxygen Concentration - - Weight 117.9 kg (260 lb) 03/05/2025 11:52 AM CDT Height 165.1 cm (5' 5) 03/05/2022 2:44 PM CDT Body Mass Index 43.27 03/05/2022 2:44 PM CDT Plan of Treatment Health Maintenance Due Date Last Done Comments Cervical Cancer Screening 1997 Depression Screening 1997 Hepatitis C Screening 1997 Regular Well Visit/Exam 18-64 2015 DTaP/Tdap/Td Vaccine (7 - Td or Tdap) 07/07/2021 07/07/2011, 06/25/2002, 04/14/1998, Additional history exists HPV Vaccines (1 - 3-dose SCDM series) 2024 Covid-19 Vaccine (3 - season) 2025 01/26/2021, 01/03/2021 Influenza Vaccine (#1) 2025 , 08/07/2019, 08/30/2016 Hepatitis B Screening Completed 1997 , 1997, 1997 Varicella Vaccines Completed 07/07/2011, 04/14/1998 Pneumococcal vaccine <65 Aged Out No longer eligible based on patient's age to complete this topic Insurance [facility] CHOICE PLUS [facility] CHOICE PLUS Advance Directives For more information, please contact: [phone] * Full Code (Latest Code Status on File) Date Activated Date Inactivated Comments 09/12/2021 6:25 PM 09/13/2021 8:48 PM Care Teams Steel Estimator Relationship Specialty Start Date End Date Unknown, Notinfile PCP - General 09/11/21
--- OUTSIDE RECORDS SUMMARY | 2025-08-26 12:34 | XMS_ITS | Encounter Summary ---
Author Organization [facility] Address [address] [place] [address] Care Team Providers Care Plate Grainer Apprentice Name Role Phone None, Provider Primary Care Provider Sybil Monroy MD Primary Care Provider [phone] Encounter Details Date Type Department Care Team (Late st Contact Info) Description 02/09/2018 Abstract [facility] CONVERSION [address] [place] [address] , Generic Conversion, Social History Tobacco Use Types Packs/Day Years Used Date Smoking Tobacco: Never Assessed Comments Unknown Sex and Gender Information Value Date Recorded Sex Assigned at Female 12/29/2024 8:14 AM 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
--- OUTSIDE RECORDS SUMMARY | 2025-08-26 12:34 | XMS_ITS | Encounter Summary ---
Author Organization [facility] Address [address] [place] [address] Phone Care Team Providers Care Marine Biologist Name Role Phone Unknown, Notinfile Primary Care Provider Unavail able Encounter Details Date Type Department Care Team (Late st Contact Info) Description 03/05/2022 Ophth Exam [facility] Medicine Ophthalmology [address] [place] [address] 1st [place] [address] Tevin Pritchard MD PhD [address] [facility] [phone] [place] [address] Social History Tobacco Use Types Packs/Day Years [...] often do you attend chur ch or sabianism services? Never 09/13/2021 Do you belong to any clubs o r organizations such as mormonism groups, unions, fraternal or athletic groups, or [...] place to sleep or slept in a halfway (including now)? 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 Gender Identity Not on file Sexual Orientation Not on file documented as of this encounter Plan of Treatment Not on file documented as of this encounter Visit Diagnoses Not on filedocumented in this encounter Eye Exam Visual Acuity Right eye Left eye Near sc 20/25 20/20 Tonometry (Tonopen, 2:05 PM) Right eye Left eye Pressure 13 13 Pupils Dark Light Shape React APD Right eye 5 3 Round Brisk None Left eye 5 3 Round Brisk None Subjective decreased brightness OD but no APD Visual Pacheco (Counting fingers) Right eye Left eye Restrictions Total superior temporal, inferio r temporal deficiencies Extraocular Movement Right eye Left eye Full Full Dilation Both eyes: 1.0% Mydriacyl, 2 .5% Phenylephrine @ 2:05 PM Color Right eye Left eye Ishihara 06/05 10/06 External Exam Right eye Left eye External Normal Normal Slit Lamp Exam Right eye Left eye Lids/Lashes periorbital ecchymoses and edema Normal Conjunctiva/Sclera CARMEN temporally White and brent et Cornea Clear Clear Anterior Chamber Deep and quiet Deep and quiet Iris Round and reactive Round and ida ctive Lens Clear Clear Vitreous Normal, no Jose's sign Normal Fundus Exam Right eye Left eye Disc Normal, no pallor Normal C/D Ratio 0.2 0.2 Macula Normal Normal Vessels Normal Normal Periphery Normal, no RT/RD/VH Normal Care Teams Marine Biologist Relationship Specialty Start Date End Date Unknown, Notinfile PCP - General 09/11/21 documented as of this encounter
--- OUTSIDE RECORDS SUMMARY | 2025-08-26 12:35 | XMS_ITS | Encounter Summary ---
Author Organization [facility] Address [address] [place] [address] Care Team Providers Care Fans Clerk Name Role Phone None, Provider Primary Care Provider Sybil Monroy MD Primary Care Provider [phone] Encounter Details Date Type Department Care Team (Late st Contact Info) Description 10/02/2023 [employer] Message Enc [facility] [address] [place] [address] Mychart, [facility] Provider Monitor results Social History Tobacco Use Types Packs/Day Years Used Date Smoking Tobacco: Never Smokeless Tobacco: Never Alcohol Use Standard Drinks/Week Comments Not Currently 0 (1 standard drink = 0.6 oz pur e alcohol) Comments No Sex and Gender Information Value Date Recorded Sex Assigned at Female 12/29/2024 8:14 AM SUPERVISOR TRUST ACCOUNTS Legal Sex Female 10:08 PM SUPERVISOR TRUST ACCOUNTS Gender Identity Not on file Sexual Orientation Not on file documented as of this encounter Plan of Treatment Not on file documented as of this encounter Visit Diagnoses Not on filedocumented in this encounter Care Teams Fans Clerk Relationship Specialty Start Date End Date None, ProviderMD PCP - General 02/13/22 06/22/24 Sybil Bustos MD [address] [place] [address] PCP - General FAMILY PRACTICE 06/23/24 documented as of this encounter
--- OUTSIDE RECORDS SUMMARY | 2025-08-26 12:35 | XMS_ITS | Clinical Summary ---
Author Organization [facility] Address [address] [place] [address] Care Team Providers Care Physical Education Professor Name Role Phone Sybil Bustos MD Primary Care Provider [phone] Allergies Active Allergy Reactions Criticality Noted Date Comments Sulfamethoxazole-Trimetho prim Rash Low 06/14/2022 Banana Anaphylaxis High 02/07/2017 NOT ALLERGIC TO LATEX Carries epi pen NOT ALLERGIC TO LATEX Banana (Diagnostic) Anaphylaxis High 02/13/2022 Banana Extract Allergy Skin Test Unknown 11/22/2023 Bee Venom Unknown 02/07/2017 Eucalyptus Oil Rash Low 10/15/2018 Flavoring Agent (Non-Screening) Anaphylaxis High 02/07/2017 Other reaction(s): Unknown Nitrates, Organic Other (see comment) Medium 0 Other reaction(s): Other (See Comments) NITRATE GLOVES CAUSES SKIN REDNESS NITRATE GLOVES CAUSES SKIN REDNESS Pumpkin Flavoring Agent (Non-Screening) Unknown 02/07/2017 Sulfamethoxazole Other (see comment) 03/27/2022 Trimethoprim Other (see comment) 03/27/2022 Bupropion Other (see comment) 06/14/2022 brain shocks Medications famotidine (PEPCID) 20 MG tablet Take 1 tablet (20 mg total) by mouth daily as needed for Heartburn. Active fexofenadine (NAT) 180 MG tablet Take 1 tablet (180 mg total) by mouth daily as needed. Active QULIPTA tablet Take 1 tablet (30 mg total) by mouth daily. 01/25/2024 Active hydrOXYzine (ATARAX) 50 MG tablet Take 1 tablet (50 mg total) by mouth every 6 (six) hours as needed. Active busPIRone (BUSPAR) 30 MG tablet Take 1 tablet (30 mg total) by mouth 2 (two) times daily. 05/20/2024 Active amphetamine-dex troamphetamine XR (ADDERALL XR) 25 MG 24 hr capsule Take 1 capsule (25 mg total) by mouth every morning. 11/05/2024 Active FLUoxetine (PROZAC) 40 MG capsule Take 1 capsule (40 mg total) by mouth daily. 12/17/2024 Active EPINEPHrine 0.3 MG/0.3ML injectionIndica tions:Anaphylax is, sequela,Allergy to banana Inject 0.3 mLs (0.3 mg total) into the muscle as needed for Anaphylaxis. 2 each 1 01/14/2025 Active nortriptyline (PAMELOR) 25 MG capsule 1 capsule (25 mg total). 05/21/2025 Active SUMAtriptan (IMITREX) 100 MG tablet 04/12/2025 Active Active Problems Problem Noted Date Diagnosed Date Primary hypertension 06/23/2024 Anxiety 06/23/2024 Gastroesophageal reflux disease without esophagi tis 02/07/2017 Immunizations Immunization Administration Dates Next Due Dtap (Acel-Immune) 06/25/2002 Dtp/Hib (Tetramune) 04/14/1998, 7,1997,03/16 Hepatitis A (Havrix [address]) 08/30/2016 Hepatitis B Pediatric 1997,1997,12/28 Influenza Adult (Generic) 09/13/2021,08/07/2019, 08/30/2016 MMR (MMRII) 06/25/2002,04/14/1998 Meningococcal (Menactra) 08/30/2016,07/07/2011 PFIZER COVID-19 (12+) MRNA, LNP-S, PF, NIKUNJ-SUCROSE, 30 MCG/0.3 ML (COMIRNATY) 05/22/2025 Polio IPV (Ipol) 06/25/2002 Polio Opv (Generic) 1997,1997,1996 Tdap (Generic) 07/07/2011 Varicella (Varivax) 07/07/2011,04/14/1998 Family History Medical History Relation Comments Depression Father Hypertension Father Stroke Father Heart murmur Maternal Aunt Heart Disease Maternal Grandfather Cancer Mother Diabetes Mother Hypertension Paternal Grandmother Mental Health Paternal Grandmother Relation Status Comments Father Maternal Aunt Maternal Grandfather Mother Paternal Grandmother Social History Tobacco Use Types Packs/Day Years Used Date Smoking Tobacco: Never Passive Smoke Exposure: Never Smokeless Tobacco: Never Tobacco Cessation:Counseling Given: No Alcohol Use Standard Drinks/Week Comments Yes 0 (1 standard drink = 0.6 oz pur e alcohol) socially PHQ-2 Answer Date Recorded Patient Health Questionnaire-2 Score 0 05/22/2025 Comments No Sex and Gender Information Value Date Recorded Sex Assigned at Female 12/29/2024 8:14 AM FLAVORING OIL FILTERER Legal Sex Female 10:08 PM FLAVORING OIL FILTERER Gender Identity Not on file Sexual Orientation Not on file Last Filed Vital Signs Vital Sign Reading Time Taken Comments Blood Pressure 130/79 05/22/2025 3:24 PM CDT Pulse 98 05/22/2025 3:24 PM CDT Temperature 36.9 C (98.5 F) 05/22/2025 3:24 PM CDT Respiratory Rate 18 05/22/2025 3:24 PM CDT Oxygen Saturation 98% 05/22/2025 3:24 PM CDT Inhaled Oxygen Concentration - - Weight 123.4 kg (272 lb) 05/22/2025 3:24 PM CDT Height 165.1 cm (5' 5) 05/22/2025 3:24 PM CDT Body Mass Index 45.26 05/22/2025 3:24 PM CDT Plan of Treatment Health Maintenance Due Date Last Done Comments Cervical Cancer Screening Pap Smear (Age 21 to 29) Every 3 Years 1997 DTaP, Tdap and Td Vaccines (3 - Td or Tdap) 07/07/2021 07/07/2011, 06/25/2002, 04/14/1998, Additional history exists HPV Vaccines (1 - 3-dose SCDM series) 2024 Annual Physical 05/22/2026 05/22/2025, 06/23/2024 Cervical Cancer Screening 12/02/2027 Po stponed from 1997 (Going to Outside Clinic) Hepatitis B Vaccines Completed 1997, 1997, 1997 Meningococcal Vaccine Aged Out 08/30/2016, 011 No longer eligible based on patient's age to complete this topic COVID-19 Vaccine Completed 05/22/2025, , 01/26/2021, Additional history exists PHQ-2 (Physician Yuhaaviatam) Completed 05/22/2025 Hepatitis C Completed 05/25/2025 Meningococcal B Vaccine Aged Out No l onger eligible based on patient's age to complete this topic Pneumococcal Vaccine: Pediatrics (0 to 5 Years) and At-Risk Patients (6 to 49 Years) Aged Out No longer eligible based on patient's age to complete this topic RSV Immunizations Under 20 Months Aged Out No longer eligible based on patient's age to complete this topic Procedures Procedure Name Priority Date/Time Associated Diagnosis Comments HEPATITIS C ANTIBODY Routine 05/25/2025 2:04 PM CDT Encounter for hepatitis C screening test for low risk patient from Last 3 Months or Most Recently Relevant to Health Maintenance Results * HEPATITIS C ANTIBODY (05/25/2025 2:04 PM CDT) HEPATITIS C AB NON-REACTI VE NON-REACT JESSICA 05/26/2025 12:08 PM CDT [facility] Comment: ANTIBODIES TO HCV NOT DETECTED. DOES NOT EXCLUDE THE POSSIBILITY OF EXPOSURE TO HCV. 05/25/2025 2:04 PM CDT Sybil Bustos MD LABORATORY Final Result [facility] [address] [place] [address], [id number] from Last 3 Months or Most Recently Relevant to Health Maintenance Insurance [facility] Care Teams Physical Education Professor Relationship Specialty Start Date End Date Sybil Bustos MD [address] [place] [address] PCP - General FAMILY PRACTICE 06/23/24
--- OUTSIDE RECORDS SUMMARY | 2025-08-26 12:35 | XMS_ITS | Encounter Summary ---
Author Organization [facility] Address [address] [place] [address] Care Team Providers Care Leave Manager Name Role Phone None, Provider Primary Care Provider Sybil Monroy MD Primary Care Provider [phone] Encounter Details Date Type Department Care Team (Late st Contact Info) Description 08/31/2023 [employer] Message Enc [facility] [address] [place] [address] Amy, [facility] Provider lab results Social History Tobacco Use Types Packs/Day Years Used Date Smoking Tobacco: Never Smokeless Tobacco: Never Alcohol Use Standard Drinks/Week Comments Not Currently 0 (1 standard drink = 0.6 oz pur e alcohol) Comments No Sex and Gender Information Value Date Recorded Sex Assigned at Female 12/29/2024 8:14 AM SHANK PINNER Legal Sex Female 10:08 PM SHANK PINNER Gender Identity Not on file Sexual Orientation Not on file documented as of this encounter Plan of Treatment Not on file documented as of this encounter Visit Diagnoses Not on filedocumented in this encounter Care Teams Leave Manager Relationship Specialty Start Date End Date None, ProviderMD PCP - General 02/13/22 06/22/24 Sybil Bustos MD [facility] [place] [address] PCP - General FAMILY PRACTICE 06/23/24 documented as of this encounter
--- OUTSIDE RECORDS SUMMARY | 2025-08-26 12:35 | XMS_ITS | Encounter Summary ---
Author Organization [facility] Address [address] [place] [address] Care Team Providers Care Relocation Services Specialist Name Role Phone None, Provider Primary Care Provider Sybil Monroy MD Primary Care Provider [phone] Encounter Details Date Type Department Care Team (Late st Contact Info) Description 11/01/2023 [employer] Message Enc [facility] [address] [place] [address] Libia Figueroa, SNUFF MAKER [address] [address] Letter to Елена Eric attn to Use Social History Tobacco Use Types Packs/Day Years Used Date Smoking Tobacco: Never Smokeless Tobacco: Never Alcohol Use Standard Drinks/Week Comments Not Currently 0 (1 standard drink = 0.6 oz pur e alcohol) Comments No Sex and Gender Information Value Date Recorded Sex Assigned at Female 12/29/2024 8:14 AM FIELD MARKETING DIRECTOR Legal Sex Female 10:08 PM FIELD MARKETING DIRECTOR Gender Identity Not on file Sexual Orientation Not on file documented as of this encounter Plan of Treatment Not on file documented as of this encounter Visit Diagnoses Not on filedocumented in this encounter Care Teams Relocation Services Specialist Relationship Specialty Start Date End Date None, Provider, PCP - General 02/13/22 06/22/24 Sybil Bustos MD [facility] [place] [address] PCP - General FAMILY PRACTICE 06/23/24 documented as of this encounter
[2025-08-26 12:41] VITALS: BP 142/96; PULSE 75; RESP 18; TEMP 36.7; O2SAT 95
--- OUTSIDE RECORDS SUMMARY | 2025-08-26 13:01 | XMS_ITS | Clinical Summary ---
Author Organization [facility] [employer] Address [address] [facility] [place] [address] Care Team Providers Care Knot Tier Name Role Phone Nga Rashid MD Primary Care Provider [phone] Source Comments [facility] [employer],non-owned Affiliates and Associated Physician Practices is amultiple site organization consisting of ambulatory clinics and hospital sitesin [place], [place] and [place]. This disclosure is being madepursuant to the Care Everywhere program and may not contain all information available regarding this patient. Last updated 18.[facility] Allergies Active Allergy Reactions Criticality Noted Date [...] on file Legal Sex Female 5:43 AM LAB NURSE Gender Identity Not on file Sexual Orientation Not on file Last Filed Vital Signs Vital Sign Reading Time Taken Comments Blood Pressure 139/84 12/24/2024 4:00 PM LAB NURSE Pulse 74 12/24/2024 4:00 PM LAB NURSE Temperature 36.7 C (98 F) 12/24/2024 12:30 PM LAB NURSE Respiratory Rate 18 12/24/2024 4:00 PM LAB NURSE Oxygen Saturation 100% 12/24/2024 4:00 PM LAB NURSE Inhaled Oxygen Concentration - - Weight 108.9 kg (240 lb) 12/24/2024 12:30 PM LAB NURSE Height 165.1 cm (5' 5) 12/24/2024 12:30 PM LAB NURSE Body Mass Index 39.94 12/24/2024 12:30 PM LAB NURSE Plan of Treatment Health Maintenance Due Date [...] patient's age to complete this topic Insurance [id number] [facility] Care Teams Knot Tier Relationship Specialty Start Date End Date Nga Rashid MD [address] [place] [address] PCP - General 09/28/11
--- OUTSIDE RECORDS SUMMARY | 2025-08-26 13:01 | XMS_ITS | Clinical Summary ---
Author Organization [facility] Address [address] [place] [address] Care Team Providers Care Inspector Subassemblies Name Role Phone Sybil Bustos MD Primary Care Provider [phone] Allergies Active Allergy Reactions Criticality Noted Date [...] Sex Assigned at Female 12/29/2024 8:14 AM SAMPLE PREP TECHNICIAN Legal Sex Female 10:08 PM SAMPLE PREP TECHNICIAN Gender Identity Not on file Sexual Orientation [...] , 01/26/2021, Additional history exists PHQ-2 (Physician [place]) Completed 05/22/2025 Hepatitis C Completed 05/25/2025 Meningococcal [...] VE NON-REACT JESSICA 05/26/2025 12:[address] [facility] Comment: ANTIBODIES TO HCV NOT DETECTED. DOES NOT EXCLUDE THE POSSIBILITY OF EXPOSURE TO HCV. 05/25/2025 2:04 PM CDT Sybil Bustos MD LABORATORY Final Result [facility] [address] [place] [address], [id number] from Last 3 Months or Most Recently Relevant to Health Maintenance Insurance [facility] Care Teams Inspector Subassemblies Relationship Specialty Start Date End Date Sybil Bustos MD [address] [place] [address] PCP - General FAMILY PRACTICE 06/23/24
--- OUTSIDE RECORDS SUMMARY | 2025-08-26 13:01 | XMS_ITS | Encounter Summary ---
Author Organization [facility] Address [address] [place] [address] Care Team Providers Care Speech Language Assistant Name Role Phone None, Provider Primary Care Provider Sybil Monroy MD Primary Care Provider [phone] Encounter Details Date Type Department Care Team (Late st Contact Info) Description 08/31/2023 [employer] Message Enc [facility] [address] [place] [address] Amy, [facility] Provider lab results Social History Tobacco Use Types Packs/Day Years Used Date Smoking Tobacco: Never Smokeless Tobacco: Never Alcohol Use Standard Drinks/Week Comments Not Currently 0 (1 standard drink = 0.6 oz pur e alcohol) Comments No Sex and Gender Information Value Date Recorded Sex Assigned at Female 12/29/2024 8:14 AM MANAGER UNION Legal Sex Female 10:08 PM MANAGER UNION Gender Identity Not on file Sexual Orientation Not on file documented as of this encounter Plan of Treatment Not on file documented as of this encounter Visit Diagnoses Not on filedocumented in this encounter Care Teams Speech Language Assistant Relationship Specialty Start Date End Date None, ProviderMD PCP - General 02/13/22 06/22/24 Sybil Bustos MD [facility] [place] [address] PCP - General FAMILY PRACTICE 06/23/24 documented as of this encounter
--- OUTSIDE RECORDS SUMMARY | 2025-08-26 13:01 | XMS_ITS | Clinical Summary ---
Author Organization [facility] Address [address] [place] [address] Care Team Providers Care French Professor Name Role Phone Unknown, Notinfile Primary Care [...] often do you attend chur ch or alevism services? Never 09/13/2021 Do you belong to any clubs o r organizations such as baptist groups, unions, fraternal or athletic groups, or [...] place to sleep or slept in a correction (including now)? No 09/13/2021 Personal Safety Answer Date Recorded Have you ever been in or are you currently in a harmful physical or emotional relationship or is someone making you feel afraid or unsafe? Denies 03/05/2025 Comments No Sex and Gender Information Value Date Recorded Sex Assigned at Not on file Legal Sex Female 5:40 AM AUTOMOBILE UPHOLSTERER APPRENTICE Gender Identity Not on file Sexual Orientation [...] patient's age to complete this topic Insurance * Guarantor: Osito, Jacqueline A Account Type Relation to Patient Date of Phone Billing Address Personal/Family Self [address] [facility] [address] [place], [place] [id number] [facility] * Guarantor: Osito Jacqueline A Account Type Relation to Patient Date of Phone Billing Address Personal/Family Self 1995 [facility] [place] [address] [facility] CHOICE PLUS [facility] CHOICE PLUS Advance Directives For more information, please contact: [phone] * Full Code (Latest Code Status on File) Date Activated Date Inactivated Comments 09/12/2021 6:25 PM 09/13/2021 8:48 PM Care Teams French Professor Relationship Specialty Start Date End Date Unknown, Notinfile PCP - General 09/11/21
--- OUTSIDE RECORDS SUMMARY | 2025-08-26 13:01 | XMS_ITS | Encounter Summary ---
Author Organization [facility] Address [address] [place] [address] Care Team Providers Care Licensed Plumber Name Role Phone None, Provider Primary Care Provider Sybil Monroy MD Primary Care Provider [phone] Encounter Details Date Type Department Care Team (Late st Contact Info) Description 11/01/2023 [employer] Message Enc [facility] [address] [place] [address] Libia Figueroa, CARRIAGE RIDER [address] [address] Letter to Елена Eric attn to Sue Social History Tobacco Use Types Packs/Day Years Used Date Smoking Tobacco: Never Smokeless Tobacco: Never Alcohol Use Standard Drinks/Week Comments Not Currently 0 (1 standard drink = 0.6 oz pur e alcohol) Comments No Sex and Gender Information Value Date Recorded Sex Assigned at Female 12/29/2024 8:14 AM BACK STAYER Legal Sex Female 10:08 PM BACK STAYER Gender Identity Not on file Sexual Orientation Not on file documented as of this encounter Plan of Treatment Not on file documented as of this encounter Visit Diagnoses Not on filedocumented in this encounter Care Teams Licensed Plumber Relationship Specialty Start Date End Date None, Provider, PCP - General 02/13/22 06/22/24 Sybil Bustos MD [facility] [place] [address] PCP - General FAMILY PRACTICE 06/23/24 documented as of this encounter
--- OUTSIDE RECORDS SUMMARY | 2025-08-26 13:01 | XMS_ITS | Encounter Summary ---
Author Organization [facility] Address [address] [place] [address] Phone Care Team Providers Care Rug Measurer Name Role Phone Unknown, Notinfile Primary Care Provider Unavail able Encounter Details Date Type Department Care Team (Late st Contact Info) Description 03/05/2022 Ophth Exam [facility] Medicine Ophthalmology [address] [place] [address] 1st [place] [address] Tevin Pritchard MD PhD [address] [facility] [phone] [place] [address] Social History Tobacco Use Types Packs/Day Years [...] often do you attend chur ch or hoahaoism services? Never 09/13/2021 Do you belong to any clubs o r organizations such as religion groups, unions, fraternal or athletic groups, or [...] place to sleep or slept in a penitentiary (including now)? No 09/13/2021 Comments No Sex and Gender Information Value Date Recorded Sex Assigned at Not on file Legal Sex Female 5:40 AM ELEMENTARY TUTOR Gender Identity Not on file Sexual Orientation [...] Periphery Normal, no RT/RD/VH Normal Care Teams Rug Measurer Relationship Specialty Start Date End Date Unknown, Notinfile PCP - General 09/11/21 documented as of this encounter
--- OUTSIDE RECORDS SUMMARY | 2025-08-26 13:01 | XMS_ITS | Encounter Summary ---
Author Organization [facility] Address [address] [place] [address] Care Team Providers Care Distributor Sales Manager Name Role Phone None, Provider Primary Care Provider Sybil Monroy MD Primary Care Provider [phone] Encounter Details Date Type Department Care Team (Late st Contact Info) Description 10/02/2023 nap- Naturally Attached Parents Message Enc [facility] [address] [place] [address] Mychart, [facility] Provider Monitor results Social History Tobacco Use Types Packs/Day Years Used Date Smoking Tobacco: Never Smokeless Tobacco: Never Alcohol Use Standard Drinks/Week Comments Not Currently 0 (1 standard drink = 0.6 oz pur e alcohol) Comments No Sex and Gender Information Value Date Recorded Sex Assigned at Female 12/29/2024 8:14 AM ELECTRIC METER REPAIRER HELPER Legal Sex Female 10:08 PM ELECTRIC METER REPAIRER HELPER Gender Identity Not on file Sexual Orientation Not on file documented as of this encounter Plan of Treatment Not on file documented as of this encounter Visit Diagnoses Not on filedocumented in this encounter Care Teams Distributor Sales Manager Relationship Specialty Start Date End Date None, ProviderMD PCP - General 02/13/22 06/22/24 Sybil Bustos MD [address] [place] [address] PCP - General FAMILY PRACTICE 06/23/24 documented as of this encounter
--- OUTSIDE RECORDS SUMMARY | 2025-08-26 13:01 | XMS_ITS | Encounter Summary ---
Author Organization [facility] Address [address] [place] [id number] Care Team Providers Care Tower Switch Operator Name Role Phone None, Provider Primary Care Provider Sybil Monroy MD Primary Care Provider [phone] Encounter Details Date Type Department Care Team (Late st Contact Info) Description 02/09/2018 Abstract [facility] CONVERSION [address] [place] [address] , Generic Conversion, Social History Tobacco Use Types Packs/Day Years Used Date Smoking Tobacco: Never Assessed Comments Unknown Sex and Gender Information Value Date Recorded Sex Assigned at Female 12/29/2024 8:14 AM [employer] Legal Sex Female 10:08 PM [employer] Gender Identity Not on file Sexual Orientation Not on file documented as of this encounter Plan of Treatment Not on file documented as of this encounter Visit Diagnoses Not on filedocumented in this encounter Care Teams Tower Switch Operator Relationship Specialty Start Date End Date None, Provider, PCP - General 02/13/22 06/22/24 Sybil Bustos MD [address] [place] [address] PCP - General FAMILY PRACTICE 06/23/24 documented as of this encounter
--- NOTE | 2025-08-26 13:55 | ED.GENADULT ---
HPI - General Adult General Chief complaint: Head Injury Stated complaint: Fell-hit head on floor- Time Seen by Provider: 08/26/25 12:40 History of Present Illness HPI narrative: This is a 22-year-old female with history of POTS presenting after a fall. She was sitting down in her chair while at work when the chair gave out. The patient then struck her head on a filing cabinet and then fell and hit the floor. She says she was dazed but did not truly lose consciousness. She is not on blood thinners. GCS 15. She has not had any persistent vomiting or amnesia to the event. She also has some left-sided neck pain. She does not have any weakness to any extremity. No radicular symptoms. Related Data Home Medications ?Medication ?Instructions ?Recorded ?Confirmed ?Last Taken ?Type buspirone 30 mg tablet mg 02/24/24 04/08/25 Unknown History gabapentin 800 mg tablet mg 02/24/24 04/08/25 Unknown History hydroxyzine HCl 50 mg tablet mg 02/24/24 04/08/25 Unknown History dextroamphetamine-amphetamine ER 25 mg PO DAILY 04/08/25 04/08/25 Unknown History 25 mg 24hr capsule,extend release (Adderall XR) fluoxetine 40 mg capsule 80 mg PO DAILY 04/08/25 04/08/25 Unknown History Allergies Allergy/AdvReac Type Severity Reaction Status Date / Time banana Allergy Severe Difficulty Verified 08/26/25 12:33 Swallowing bupropion (From Wellbutrin) Allergy Mild Other Verified 08/26/25 12:33 eucalyptus Allergy Hives Verified 08/26/25 12:33 sulfamethoxazole (From Allergy Hives Verified 08/26/25 12:33 Bactrim) trimethoprim (From Bactrim) Allergy Hives Verified 08/26/25 12:33 PMFSH Past Medical History Medical History Episodic migraine Recurrent episodes of unresponsiveness Anaphylactic reaction Surgical History Surgical History No pertinent past surgical history Social History Social History Smoking status: Never smoker Alcohol intake: never Exam Narrative: APPEARANCE: No apparent distress. Head: atraumatic. EYES: EOMI, NOSE: Atraumatic NECK: No midline cervical tenderness, left tenderness over the left para cervical muscles. RESPIRATORY: No increased rate of breathing clear to auscultation CARDIOVASCULAR: RRR, ABDOMINAL: Non-distended MUSCULOSKELETAl: No obvious deformities NEURO: Alert. Cranial nerves 2-12 grossly intact. Sensation light touch, motor function cerebellar function intact for 4 extremities. Gait exam was normal. SKIN:: Warm, dry. Normal color PSYCHIATRIC: Normal affect Course Vital Signs Vital signs: Vital Signs Temperature 98.0 F 08/26/25 12:41 Pulse Rate 75 08/26/25 12:41 Respiratory Rate 18 08/26/25 12:41 Blood Pressure 142/96 H 08/26/25 12:41 Pulse Oximetry 95 08/26/25 12:41 Oxygen Delivery Room Air 08/26/25 12:41 Temperature 98.0 F 08/26/25 12:41 Pulse Rate 75 08/26/25 12:41 Respiratory Rate 18 08/26/25 12:41 Blood Pressure 142/96 H 08/26/25 12:41 Pulse Oximetry 95 08/26/25 12:41 Oxygen Delivery Room Air 08/26/25 12:41 Medical Decision Making MDM Narrative Medical decision making narrative: -Course: 22-year-old female presenting after a ground level fall. Patient is well-appearing on exam. Physical exam showed some tenderness over the left paracervical muscles but no midline cervical tenderness. Neurologic exam is normal. No other traumatic injuries. Patient is negative for the Ethiopian CT head and CT cervical spine rules. She will be discharged follow-up with primary care physician. -DDX includes but is not limited to: Concussion intracranial hemorrhage cervical fracture, cervical strain Ethiopian CT Head Injury/Trauma Rule from [email or web address] on 08/26/2025 All calculations should be rechecked by clinician prior to use RESULT SUMMARY: CT Unnecessary The [place]ian CT Head Rule suggests a head CT is not necessary for this patient (sensitivity 83-100% for all intracranial traumatic findings, sensitivity 100% for findings requiring neurosurgical intervention). INPUTS: Age <16 years ?> 0 = No Patient on blood thinners ?> 0 = No Seizure after injury ?> 0 = No GCS <15 at 2 hours post-injury ?> 0 = No Suspected open or depressed skull fracture ?> 0 = No Any sign of basilar skull fracture? ?> 0 = No >= episodes of vomiting ?> 0 = No Age >=5 years ?> 0 = No Retrograde amnesia to the event >=30 minutes ?> 0 = No ?Dangerous? mechanism? ?> 0 = No Ethiopian C-Spine Rule from [employer] on 08/26/2025 All calculations should be rechecked by clinician prior to use RESULT SUMMARY: Low risk C-spine can be cleared clinically by these criteria. No imaging is required. INPUTS: Age >=5 years, extremity paresthesias, or dangerous mechanism ?> 1 = No Low risk factor present ?> 2 = Yes Able to actively rotate neck 45? left and right ?> 2 = Yes Vital Signs Vital Signs: Vital Signs Temperature 98.0 F 08/26/25 12:41 Pulse Rate 75 08/26/25 12:41 Respiratory Rate 18 08/26/25 12:41 Blood Pressure 142/96 H 08/26/25 12:41 Pulse Oximetry 95 08/26/25 12:41 Oxygen Delivery Room Air 08/26/25 12:41 Temperature 98.0 F 08/26/25 12:41 Pulse Rate 75 08/26/25 12:41 Respiratory Rate 18 08/26/25 12:41 Blood Pressure 142/96 H 08/26/25 12:41 Pulse Oximetry 95 08/26/25 12:41 Oxygen Delivery Room Air 08/26/25 12:41 Discharge Plan Discharge Clinical Impression: Cervicalgia, Concussion Patient Disposition: Home Condition: Stable Instructions: Antibiotic Form, Concussion (ED) Additional Instructions: You were seen in the emergency department after a fall. Please follow-up with your primary care physician in the next 1-2 days. If you develop persistent vomiting, weakness to any extremity, confusion or severe pain please return to ED for re-evaluation. Patient Language: Zambian Prescriptions: No Action dextroamphetamine-amphetamine [Adderall XR] 25 mg capsule,extended release 24hr 25 mg PO DAILY nortriptyline 25 mg capsule 25 mg PO QHS Qty: 30 6RF sumatriptan succinate 100 mg tablet See Rx Instructions PO .COMPLEX Qty: 14 6RF Rx Instructions: take 1 tab at onset of headache; if no relief, may repeat 1 tab after at least 2 hrs; max = 2 tabs/24 hrs PO prochlorperazine maleate [Compazine] 5 mg tablet 5 mg PO . p.r.n. MDD maximum 30 mg a day PRN (Reason: nausea and vomiting) 1 Days Qty: 30 2RF Rx Instructions: 1-2 tablets along with sumatriptan and naproxen for migraine hydroxyzine HCl 50 mg tablet gabapentin 800 mg tablet buspirone 30 mg tablet fluoxetine 40 mg capsule 80 mg PO DAILY epinephrine [EpiPen 2-Zeyad] 0.3 mg/0.3 mL auto-injector 0.3 mg IM ONCE Qty: 2 0RF Rx Instructions: as a single dose; may repeat once hydroxyzine HCl 50 mg tablet 50 mg PO TID Qty: 14 0RF epinephrine [EpiPen 2-Zeyad] 0.3 mg/0.3 mL auto-injector 0.3 mg IM ONCE Qty: 2 0RF Rx Instructions: as a single dose; may repeat once hydroxyzine HCl 50 mg tablet 50 mg PO TID Qty: 14 0RF naproxen 500 mg tablet 500 mg PO BID PRN (Reason: pain) Qty: 60 2RF Follow-up/Referrals: UNKNOWN,DOCTOR [Primary Care Provider] Stand Alone Forms: Work/School Release IP
[2025-08-26 14:26] VITALS: BP 142/76; PULSE 80; RESP 16; O2SAT 98
== END 2025-08-26 14:27 | disposition home or self-care (01) ==
PROVIDERS: Emergency Provider Emergency Medicine
DX: S06.0X0A Concussion without loss of consciousness, initial encounter (principal); S19.9XXA Unspecified injury of neck, initial encounter; G90.A Postural orthostatic tachycardia syndrome [POTS]; W07.XXXA Fall from chair, initial encounter
CPT/HCPCS: 99282